=== PATIENT | male | born 1990 | race Caucasian/White ===

== ENCOUNTER 2021-07-04 14:04 | Emergency (ER) | payer OTHER ==
[~2021-07-04] VITALS: Ht 172.7 cm; Wt 65.8 kg
[~2021-07-04 14:04] MED LIST: LOMOTIL 0.025 M1 TA1 PO; ZOFRAN ODT4 MG SL
[2021-07-04 15:03] LABS: BASO # 0.1 10*3/uL (0.0-0.1); BASO % 0.8 % (0.0-1.0); EOS # 0.2 10*3/uL (0.0-0.4); EOS % 2.6 % (1.0-4.0); HEMATOCRIT 46.5 % (42.0-52.0); LYMPH % 31.4 % (27.0-41.0); MEAN CELL VOLUME 89.4 fl (80.0-94.0); MEAN CORPUSCULAR HGB 30.8 pg (27.0-31.0); MEAN CORPUSCULAR HGB CONC 34.4 g/dl (33.0-37.0); MEAN PLATELET VOLUME 8.7 fl (9.6-12.3); MONO # 0.7 10*3/uL (0.1-1.0); MONO % 10.9 % (3.0-9.0); NEUT # 3.5 10*3/uL (2.3-7.9); PLATELET COUNT AUTOMATED 331 10*3/uL (130-400); RED CELL DISTRI WIDTH 12.5 % (0-14.5); WHITE BLOOD COUNT 6.5 10*3/uL (4.8-10.8)
[2021-07-04 15:16] LABS: BUN 15 mg/dl (7-24); CHLORIDE 104 mmol/L (98-107); CREATININE 0.87 mg/dL (0.70-1.30); POTASSIUM 3.6 mmol/L (3.5-5.1); SODIUM 138 mmol/L (136-145)
[2021-07-04] MEDS ORDERED: NAPROXEN250 MG PO (16:20)
[2021-07-04] MEDS ORDERED: TYLENOL325 M1 PO (16:20)
== END 2021-07-04 16:27 | disposition home or self-care (01) ==
LOC: ED 14:04
PROVIDERS: Emergency Medicine
DX: R07.9 Chest pain, unspecified (principal); G43.909 Migraine, unspecified, not intractable, without status migrainosus

== ENCOUNTER 2023-07-16 07:11 | Emergency (ER) | payer OTHER ==
[~2023-07-16] VITALS: Ht 167.6 cm; Wt 68.0 kg
[~2023-07-16 07:11] MED LIST changes: +NAPROXEN250 MG PO; +TYLENOL325 M1 PO
[2023-07-16] MEDS ORDERED: Acetaminophen/Oxycodone 5 MG/325 MG TABLET PO ONE (07:50)
[2023-07-16] MEDS ORDERED: LEVOFLOXACIN750 M2 PO (08:47)
[2023-07-16] MEDS ORDERED: MELOXICAM15 MG PO (08:47)
[2023-07-16] MEDS ORDERED: VARENICLINE TART1 MG PO (08:47)
== END 2023-07-16 09:02 | disposition home or self-care (01) ==
LOC: ED 07:11
DX: J40 Bronchitis, not specified as acute or chronic (principal); F17.210 Nicotine dependence, cigarettes, uncomplicated

== ENCOUNTER 2024-10-22 14:22 | Emergency (ER) | payer OTHER ==
[~2024-10-22] VITALS: Ht 170.1 cm; Wt 70.3 kg
[~2024-10-22 14:22] MED LIST changes: +LEVOFLOXACIN750 M2 PO; +MELOXICAM15 MG PO; +VARENICLINE TART1 MG PO
[2024-10-22] MEDS ORDERED: Acetaminophen/Hydrocodone HP 10/325 PO ONE (14:40)
[2024-10-22 15:06] LABS: BASO % 0.5 % (0.0-1.0); EOS % 0.5 % (1.0-4.0); HEMATOCRIT 46.1 % (42.0-52.0); MEAN CELL VOLUME 91.3 fl (80.0-94.0); MEAN CORPUSCULAR HGB 30.5 pg (27.0-31.0); MEAN CORPUSCULAR HGB CONC 33.4 g/dl (33.0-37.0); MEAN PLATELET VOLUME 8.5 fl (9.6-12.3); MONO # 1.2 10*3/uL (0.1-1.0); MONO % 15.8 % (3.0-9.0); NEUT # 5.5 10*3/uL (2.3-7.9); NEUT % 70.3 % (47.0-73.0); PLATELET COUNT AUTOMATED 255 10*3/uL (130-400); RED BLOOD COUNT 5.05 10*6/uL (4.50-5.90); RED CELL DISTRI WIDTH 12.9 % (0-14.5); WHITE BLOOD COUNT 7.8 10*3/uL (4.8-10.8)
[2024-10-22 15:25] LABS: BUN 12 mg/dl (9-23); CHLORIDE 101 mmol/L (98-107); POTASSIUM 3.8 mmol/L (3.4-5.1)
[2024-10-22] MEDS ORDERED: AMOX-CLAV 875-1 EACH PO (15:48)
[2024-10-22] MEDS ORDERED: Amoxicillin/Clavulanate Pota 875 MG TAB PO ONE (15:50)
[2024-10-22] MEDS ORDERED: Dextromethorphan Hydrobromid 1 TAB TAB PO ONE (16:00)
== END 2024-10-22 16:45 | disposition home or self-care (01) ==
LOC: ED 14:22
PROVIDERS: Nurse Practitioner Family
DX: S83.92XA Sprain of unspecified site of left knee, initial encounter (principal); J06.9 Acute upper respiratory infection, unspecified; Z79.899 Other long term (current) drug therapy; W11.XXXA Fall on and from ladder, initial encounter; Y93.89 Activity, other specified; Y92.89 Other specified places as the place of occurrence of the external cause; Y99.8 Other external cause status

== ENCOUNTER → 2024-11-12 | Outpatient (CLI) | payer OTHER ==
[~2024-11-12] MED LIST changes: +AMOX-CLAV 875-1 EACH PO
== END | disposition home or self-care (01) ==
LOC: LAB 15:40 → US 16:00
PROVIDERS: ATTEND Internal Medicine
DX: I86.1 Scrotal varices (principal); N50.812 Left testicular pain; K59.01 Slow transit constipation